=== PATIENT | female | born 1965 | race Caucasian/White ===

== ENCOUNTER 2018-10-15 21:46 | Emergency (ER) | payer SELFPAY ==
[~2018-10-15] VITALS: Ht 152.4 cm; Wt 113.6 kg
[~2018-10-15 21:46] MED LIST: ASPI-556 PO; LISI20TA PO; METF1000 PO; SIMV20TA6 PO
[2018-10-15] MEDS ORDERED: LISI1TAB9 PO (22:00)
[2018-10-15] MEDS ORDERED: NPH,100V SQ (22:03)
[2018-10-15 22:17] LABS: GLUCOSE,POINT OF CARE 377 MG/DL (70-110)
[2018-10-15 22:35] LABS: APPEARANCE,URINE CLEAR (CLEAR); BILIRUBIN,URINE NEGATIVE (NEGATIVE); GLUCOSE, URINE (UA) >=1000 mg/dL (NEGATIVE); KETONES,URINE 15 mg/dL (NEGATIVE); LEUKOCYTE ESTERASE ,URINE NEGATIVE (NEGATIVE); NITRATE,URINE NEGATIVE (NEGATIVE); OCCULT BLOOD,URINE NEGATIVE (NEGATIVE); PH,URINE 6.5 (5.0-8.0); PROTEIN,URINE NEGATIVE (NEGATIVE)
[2018-10-15 22:36] LABS: BASOPHILS % (AUTO) 0.4 % (0.0-2.0); EOSINOPHILS % (AUTO) 0.2 % (1.0-6.0); HEMATOCRIT 42.7 % (36-46); HEMOGLOBIN 14.4 g/dL (12.0-16.0); LYMPHOCYTES # (AUTO) 1.1 K/uL (1.0-4.8); LYMPHOCYTES % (AUTO) 15.9 % (22.0-44.0); MEAN CORPUSCULAR HEMOGLOBIN 28.3 pg (26.0-34.0); MEAN CORPUSCULAR HGB CONC 33.9 G/dL (31.0-37.0); MEAN CORPUSCULAR VOLUME 84 fL (80-100); MONOCYTES # (AUTO) 0.5 K/uL (0.1-1.0); MONOCYTES % (AUTO) 7.8 % (2.0-9.0); NEUTROPHILS # (AUTO) 5.3 K/uL (1.8-7.7); NEUTROPHILS % (AUTO) 75.7 % (40.0-70.0); PLATELET COUNT (AUTO) 194 K/uL (150-450); RED BLOOD CELL COUNT(AUTO) 5.11 MIL/uL (4.00-5.20); RED CELL DISTRIBUTION WIDTH 14.1 % (11.5-14.5)
[2018-10-15 22:44] LABS: ANION GAP 6 mmol/L (8-16); CALCIUM, TOTAL 8.6 mg/dL (8.8-10.5); CARBON DIOXIDE 30 mmol/L (22-29); CHLORIDE 100 mmol/L (98-107); CREATININE 0.81 mg/dL (0.60-1.30); GLOMERULAR FILTR. RATE CALC > 60 mL/min (>60); GLUCOSE,RANDOM 369 mg/dL (70-110); POTASSIUM 4.5 mmol/L (3.5-5.1); SODIUM SERUM 136 mmol/L (136-145); UREA NITROGEN, BLOOD 8 mg/dL (7-18)
[2018-10-15 22:54] LABS: BACTERIA,URINE Moderate /HPF (None Seen); RBC,URINE None Seen /HPF (0-2); SQUAMOUS EPITHELIAL CELL,UR Few /LPF (None Seen)
[2018-10-15 22:55] LABS: ALANINE AMINOTRANSFERASE 53 U/L (12-78); ALBUMIN 3.2 g/dL (3.4-5.0); ALKALINE PHOSPHATASE 136 U/L (46-116); ASPARTATE AMINOTRANSFERASE 36 U/L (15-37); BILIRUBIN,TOTAL 0.6 mg/dL (0.1-1.0); HCG,QUANTITATIVE 1 mIU/mL (0-6); TOTAL PROTEIN, SERUM 7.1 g/dL (6.4-8.2)
[2018-10-16] MEDS ORDERED: SODIUM CHLORIDE 0.9% 1,000 ML IV ONE (00:15)
[2018-10-16 01:47] LABS: GLUCOSE,POINT OF CARE 286 MG/DL (70-110)
[2018-10-16] MEDS ORDERED: KETOROLAC TROMETHAMINE 30 MG/ML VIAL IVP ONE (02:45)
[2018-10-16] MEDS ORDERED: CYCLOBENZAPRINE HCL 10 MG TABLET PO ONE (02:45)
[2018-10-16 03:34] VITALS: BP 138/89
== END 2018-10-16 03:36 | disposition home or self-care (01) ==
LOC: EMS 21:47
DX: M54.41 Lumbago with sciatica, right side (principal); M54.42 Lumbago with sciatica, left side; E11.9 Type 2 diabetes mellitus without complications; Z79.4 Long term (current) use of insulin; Z79.82 Long term (current) use of aspirin
CPT/HCPCS: 36415; 80053; 81001; 82962; 84702; 85025; 87086; 96374; 99283; J1885; J7030

== ENCOUNTER 2018-12-24 16:04 | Emergency (ER) | payer MEDICAID ==
[~2018-12-24] VITALS: Ht 157.5 cm; Wt 118.6 kg
[~2018-12-24 16:04] MED LIST changes: +LISI1TAB9 PO; -LISI20TA PO; +NPH,100V SQ
[2018-12-24 16:24] LABS: GLUCOSE,POINT OF CARE 290 MG/DL (70-110)
[2018-12-24] MEDS ORDERED: ONDANSETRON HCL 4 MG/2 ML VIAL IVP ONE (17:00)
[2018-12-24] MEDS ORDERED: SODIUM CHLORIDE 0.9% 1,000 ML IV ONE ×2 (17:00→18:45)
[2018-12-24] MEDS ORDERED: KETOROLAC TROMETHAMINE 30 MG/ML VIAL IVP ONE (17:00)
[2018-12-24 17:12] LABS: BASOPHILS % (AUTO) 0.7 % (0.0-2.0); EOSINOPHILS % (AUTO) 0.3 % (1.0-6.0); HEMATOCRIT 42.8 % (36-46); HEMOGLOBIN 14.8 g/dL (12.0-16.0); LYMPHOCYTES # (AUTO) 3.4 K/uL (1.0-4.8); MEAN CORPUSCULAR HEMOGLOBIN 28.7 pg (26.0-34.0); MEAN CORPUSCULAR HGB CONC 34.7 G/dL (31.0-37.0); MEAN CORPUSCULAR VOLUME 83 fL (80-100); MONOCYTES # (AUTO) 0.8 K/uL (0.1-1.0); MONOCYTES % (AUTO) 7.7 % (2.0-9.0); NEUTROPHILS # (AUTO) 6.3 K/uL (1.8-7.7); NEUTROPHILS % (AUTO) 59.3 % (40.0-70.0); PLATELET COUNT (AUTO) 309 K/uL (150-450); RED BLOOD CELL COUNT(AUTO) 5.17 MIL/uL (4.00-5.20); RED CELL DISTRIBUTION WIDTH 14.8 % (11.5-14.5)
[2018-12-24 17:24] LABS: ANION GAP 7 mmol/L (8-16); CARBON DIOXIDE 31 mmol/L (22-29); CHLORIDE 99 mmol/L (98-107); GLUCOSE,RANDOM 241 mg/dL (70-110); POTASSIUM 3.8 mmol/L (3.5-5.1); SODIUM SERUM 137 mmol/L (136-145)
[2018-12-24 17:25] LABS: CALCIUM, TOTAL 9.1 mg/dL (8.8-10.5); CREATININE 0.63 mg/dL (0.60-1.30); GLOMERULAR FILTR. RATE CALC > 60 mL/min (>60); UREA NITROGEN, BLOOD 12 mg/dL (7-18)
[2018-12-24 17:49] LABS: ALANINE AMINOTRANSFERASE 40 U/L (12-78); ALBUMIN 2.8 g/dL (3.4-5.0); ALKALINE PHOSPHATASE 140 U/L (46-116); ASPARTATE AMINOTRANSFERASE 17 U/L (15-37); BILIRUBIN,TOTAL 0.5 mg/dL (0.1-1.0); HCG,QUANTITATIVE 1 mIU/mL (0-6); LIPASE 173 U/L (73-393); TOTAL PROTEIN, SERUM 7.2 g/dL (6.4-8.2)
[2018-12-24 19:02] LABS: APPEARANCE,URINE CLOUDY (CLEAR); BILIRUBIN,URINE NEGATIVE (NEGATIVE); GLUCOSE, URINE (UA) 250 mg/dL (NEGATIVE); KETONES,URINE NEGATIVE (NEGATIVE); LEUKOCYTE ESTERASE ,URINE MODERATE (NEGATIVE); NITRATE,URINE POSITIVE (NEGATIVE); OCCULT BLOOD,URINE NEGATIVE (NEGATIVE); PH,URINE 5.5 (5.0-8.0); PROTEIN,URINE NEGATIVE (NEGATIVE); UROBILINOGEN,URINE 0.2 mg/dL (<=1.0)
[2018-12-24 19:44] LABS: RBC,URINE None Seen /HPF (0-2)
[2018-12-24 19:45] LABS: BACTERIA,URINE Many /HPF (None Seen); SQUAMOUS EPITHELIAL CELL,UR Few /LPF (None Seen); WBC,URINE 26-50 /HPF (0-5)
[2018-12-24] MEDS ORDERED: CefTRIAXone 1 GM/DEXTROSE 50 ML IV ONE (20:00)
[2018-12-24 20:40] VITALS: BP 122/67
== END 2018-12-24 21:05 | disposition home or self-care (01) ==
LOC: EMS 16:07
DX: N12 Tubulo-interstitial nephritis, not specified as acute or chronic (principal); I10 Essential (primary) hypertension; E11.9 Type 2 diabetes mellitus without complications; E78.00 Pure hypercholesterolemia, unspecified; Z79.4 Long term (current) use of insulin; Z79.82 Long term (current) use of aspirin
CPT/HCPCS: 36415; 74176; 80053; 81001; 82962; 83690; 84484; 84702; 85025; 87086; 93005; 96374; 96375; 99284; J0696; J1885; J2405; J7030

== ENCOUNTER 2022-09-08 04:25 | Emergency (ER) | payer MEDICAID ==
[~2022-09-08] VITALS: Ht 152.4 cm; Wt 100.0 kg
[~2022-09-08 04:25] MED LIST changes: +SIMV-43 PO; -SIMV20TA6 PO
[2022-09-08 07:14] VITALS: BP 144/85
[2022-09-08] MEDS ORDERED: IBUP-2070 PO (07:26)
[2022-09-08] MEDS ORDERED: SULF-261 PO (07:26)
[2022-09-08] MEDS ORDERED: CEPH-558 PO (07:26)
== END 2022-09-08 07:48 | disposition home or self-care (01) ==
LOC: EMS 04:29
DX: L03.221 Cellulitis of neck (principal); E11.9 Type 2 diabetes mellitus without complications; E78.00 Pure hypercholesterolemia, unspecified; I10 Essential (primary) hypertension; Z90.49 Acquired absence of other specified parts of digestive tract
CPT/HCPCS: 82948; 99283

== ENCOUNTER 2025-07-21 23:19 | Emergency (ER) | payer MEDICAID ==
[~2025-07-21] VITALS: Ht 160 cm; Wt 113.6 kg
[~2025-07-21 23:19] MED LIST changes: +CEPH-558 PO; +IBUP-1492 PO; +SULF-261 PO
[2025-07-21 23:24] VITALS: TEMP 97.7
[2025-07-21] MEDS: SODIUM CHLORIDE 0.9% 1,000 ML IV ONE (23:55)
[2025-07-22 00:10] LABS: CALCIUM, TOTAL 8.4 mg/dL (8.8-10.5); CREATININE 1.16 mg/dL (0.60-1.30); GLOMERULAR FILTR. RATE CALC 48 mL/min (>60); GLUCOSE,RANDOM 334 mg/dL (70-110); SODIUM SERUM 137 mmol/L (136-145); UREA NITROGEN, BLOOD 23 mg/dL (7-18)
[2025-07-22 00:20] LABS: TROPONIN I-HIGH SENSITIVITY 6 ng/L (<51)
[2025-07-22 00:21] LABS: PLATELET COUNT (AUTO) 290 K/uL (150-450); RED BLOOD CELL COUNT(AUTO) 4.19 MIL/uL (4.00-5.20); RED CELL DISTRIBUTION WIDTH 13.5 % (11.5-14.5); WHITE BLOOD COUNT (AUTO) 11.4 K/uL (4.5-11.0)
[2025-07-22 00:33] LABS: ACETONE,BLOOD NEGATIVE (NEGATIVE)
[2025-07-22] MEDS: INSULIN REGULAR, HUMAN 100 UNITS/ML IVP ONE (00:46)
[2025-07-22 01:49] VITALS: BP 146/77; PULSE 81; RESP 16; O2SAT 99
[2025-07-22 02:06] LABS: GLUCOMETER DEV NAME(LOC) ERT.7; GLUCOSE,POINT OF CARE 204 MG/DL (70-110)
== END 2025-07-22 02:20 | disposition home or self-care (01) ==
LOC: EMS 23:19
DX: E11.65 Type 2 diabetes mellitus with hyperglycemia (principal); E78.00 Pure hypercholesterolemia, unspecified; I10 Essential (primary) hypertension; R06.02 Shortness of breath; Z90.49 Acquired absence of other specified parts of digestive tract; Z79.82 Long term (current) use of aspirin; Z79.4 Long term (current) use of insulin; Z79.84 Long term (current) use of oral hypoglycemic drugs; Z79.899 Other long term (current) drug therapy
CPT/HCPCS: 99285; 96361; 71045; 80048; 82009; 82962 ×2; 83880; 84484; 85025; 36415; 93005; 96374; J7030; J1815

== ENCOUNTER 2025-07-26 10:08 | Inpatient (IN) | payer MEDICAID ==
[~2025-07-26] VITALS: Ht 160 cm; Wt 111.9 kg
[2025-07-26] MEDS ORDERED: LOSA-382 PO (10:17)
[2025-07-26] MEDS ORDERED: ROSU20TA98 PO (10:17)
[2025-07-26] MEDS ORDERED: METF-446 PO (10:17)
[2025-07-26] MEDS ORDERED: SEMA2PEN SQ (10:17)
[2025-07-26] MEDS ORDERED: ASPI-1444 PO (10:17)
[2025-07-26 10:47] LABS: PLATELET COUNT (AUTO) 306 K/uL (150-450); RED BLOOD CELL COUNT(AUTO) 4.77 MIL/uL (4.00-5.20); RED CELL DISTRIBUTION WIDTH 13.6 % (11.5-14.5); WHITE BLOOD COUNT (AUTO) 11.4 K/uL (4.5-11.0)
[2025-07-26] MEDS: FAMOTIDINE 20 MG/2 ML VIAL IVP ONE (10:54)
[2025-07-26] MEDS: ONDANSETRON HCL 4 MG/2 ML VIAL IVP ONE (10:54)
[2025-07-26] MEDS: SODIUM CHLORIDE 0.9% 1,000 ML IV ONE (10:54)
[2025-07-26 11:03] LABS: CALCIUM, TOTAL 8.5 mg/dL (8.8-10.5); CREATININE 0.88 mg/dL (0.60-1.30); GLOMERULAR FILTR. RATE CALC > 60 mL/min (>60); GLUCOSE,RANDOM 159 mg/dL (70-110); SODIUM SERUM 139 mmol/L (136-145); UREA NITROGEN, BLOOD 10 mg/dL (7-18)
[2025-07-26 11:04] LABS: TROPONIN I-HIGH SENSITIVITY 6 ng/L (<51)
[2025-07-26 11:09] LABS: ASPARTATE AMINOTRANSFERASE 30 U/L (15-37); CREATINE KINASE, TOTAL ONLY 41 U/L (26-192); TOTAL PROTEIN, SERUM 7.0 g/dL (6.4-8.2)
[2025-07-26] MEDS ORDERED: MORPHINE SULFATE 2 MG/ML SYRINGE IVP PRN (14:00)
[2025-07-26] MEDS ORDERED: ONDANSETRON HCL 4 MG/2 ML VIAL IVP PRN (14:00)
[2025-07-26] MEDS ORDERED: MAGNESIUM HYDROXIDE SUSPENSION 30 ML UDCUP PO PRN (14:00)
[2025-07-26] MEDS ORDERED: HYDROCODONE/ACETAMINOPHEN 5-325 MG TABLET PO PRN (14:00)
[2025-07-26] MEDS ORDERED: ZOLPIDEM TARTRATE 5 MG TABLET PO PRN (14:00)
[2025-07-26] MEDS ORDERED: DEXTROSE 50%-WATER 25 GM/50 ML SYRINGE IVP PRN (14:00)
[2025-07-26] MEDS ORDERED: BISACODYL 10 MG RECTAL RECTAL SUPPOSITORY PR PRN (14:00)
[2025-07-26] MEDS: DEXTROSE 5%-0.45% SODIUM CHL 500 ML IV SCH (14:22)
[2025-07-26] MEDS: HEPARIN SODIUM,PORCINE 5,000 UNITS/ML VIAL SQ SCH (15:11)
[2025-07-26 20:40] VITALS: BP 119/76; PULSE 92; RESP 19; TEMP 97.9; O2SAT 95
[2025-07-26] MEDS: DOCUSATE SODIUM 100 MG CAPSULE PO SCH (21:00)
[2025-07-26] MEDS: ROSUVASTATIN CALCIUM 20 MG TABLET PO SCH (22:13)
[2025-07-26 23:56] LABS: GLUCOMETER DEV NAME(LOC) 5S.1D; GLUCOSE,POINT OF CARE 120 MG/DL (70-110)
[2025-07-27 00:07] VITALS: BP 109/74; PULSE 99; RESP 17; TEMP 98.2; O2SAT 93
[2025-07-27 04:24] VITALS: BP 144/82; PULSE 102; RESP 17; TEMP 98.1; O2SAT 96
[2025-07-27 06:21] LABS: PLATELET COUNT (AUTO) 259 K/uL (150-450); RED BLOOD CELL COUNT(AUTO) 4.44 MIL/uL (4.00-5.20); RED CELL DISTRIBUTION WIDTH 13.5 % (11.5-14.5); WHITE BLOOD COUNT (AUTO) 9.9 K/uL (4.5-11.0)
[2025-07-27 06:25] LABS: CALCIUM, TOTAL 8.1 mg/dL (8.8-10.5); CREATININE 0.68 mg/dL (0.60-1.30); GLOMERULAR FILTR. RATE CALC > 60 mL/min (>60); GLUCOSE,RANDOM 122 mg/dL (70-110); SODIUM SERUM 141 mmol/L (136-145); UREA NITROGEN, BLOOD 6 mg/dL (7-18)
[2025-07-27] MEDS: ACETAMINOPHEN 325 MG TABLET PO PRN (06:48)
[2025-07-27 08:10] VITALS: BP 113/80; PULSE 97; RESP 18; TEMP 97.9; O2SAT 96
[2025-07-27] MEDS: PANTOPRAZOLE SODIUM 40 MG DR TABLET PO SCH (08:47)
[2025-07-27] MEDS: LOSARTAN POTASSIUM 50 MG TABLET PO SCH (08:47)
[2025-07-27] MEDS: ASPIRIN 81 MG DR TABLET PO SCH (08:47)
[2025-07-27 11:13] LABS: APPEARANCE,URINE HAZY (CLEAR); GLUCOSE, URINE (UA) NEGATIVE (NEGATIVE); LEUKOCYTE ESTERASE ,URINE LARGE (NEGATIVE); NITRATE,URINE POSITIVE (NEGATIVE); OCCULT BLOOD,URINE NEGATIVE (NEGATIVE); SPECIFIC GRAVITIY, URINE 1.011 (1.003-1.030)
[2025-07-27 11:23] LABS: SQUAMOUS EPITHELIAL CELL,UR Few /LPF (None Seen)
[2025-07-27 12:27] VITALS: BP 109/75; PULSE 98; RESP 19; TEMP 98.1; O2SAT 94
[2025-07-27 16:27] VITALS: BP 117/63; PULSE 95; RESP 18; TEMP 98.2; O2SAT 97
[2025-07-27 20:00] VITALS: BP 111/64; PULSE 104; RESP 18; TEMP 98.6; O2SAT 95
[2025-07-27] MEDS: PANTOPRAZOLE SODIUM 40 MG DR TABLET PO ONE (20:50)
[2025-07-28] VITALS: BP 134/80; PULSE 99; RESP 19; TEMP 98.2; O2SAT 97
[2025-07-28] MEDS: CefTRIAXone 1 GM/DEXTROSE 50 ML IV SCH (03:00)
[2025-07-28 05:25] VITALS: BP 148/72; PULSE 102; RESP 18; TEMP 98.8; O2SAT 98
[2025-07-28 06:38] LABS: PLATELET COUNT (AUTO) 226 K/uL (150-450); RED BLOOD CELL COUNT(AUTO) 4.32 MIL/uL (4.00-5.20); RED CELL DISTRIBUTION WIDTH 13.8 % (11.5-14.5); WHITE BLOOD COUNT (AUTO) 8.5 K/uL (4.5-11.0)
[2025-07-28 06:40] LABS: CALCIUM, TOTAL 7.9 mg/dL (8.8-10.5); CREATININE 0.74 mg/dL (0.60-1.30); GLOMERULAR FILTR. RATE CALC > 60 mL/min (>60); GLUCOSE,RANDOM 162 mg/dL (70-110); SODIUM SERUM 141 mmol/L (136-145); UREA NITROGEN, BLOOD 3 mg/dL (7-18)
[2025-07-28] MEDS ORDERED: CEPH-558 PO (07:24)
[2025-07-28 08:00] VITALS: BP 124/74; PULSE 103; RESP 19; TEMP 97.9; O2SAT 97
[2025-07-28] MEDS: POTASSIUM CHLORIDE 20 MEQ ER TABLET PO ONE (08:04)
== END 2025-07-28 09:00 | disposition home or self-care (01) | DRG 812 ==
LOC: EMS 10:16 → EDH 12:01 → 5S 20:05
PROVIDERS: ADMIT Internal Medicine; ATTEND Internal Medicine
DX: T50.991A Poisoning by other drugs, medicaments and biological substances, accidental (unintentional), initial encounter (principal); E11.9 Type 2 diabetes mellitus without complications; E78.00 Pure hypercholesterolemia, unspecified; E86.0 Dehydration; I10 Essential (primary) hypertension; Y92.89 Other specified places as the place of occurrence of the external cause
CPT/HCPCS: 71045; 80048; 80076; 81001; 82550; 82948; 82962; 83690; 83880; 84484; 85025; 85610; 85730; 87077; 87086; 87186; 93005; 96374; 96375; 99285; J0696; J1644; J2405; J3490; J7030; J7060; 36415-L1; 36415-TC